=== PATIENT | female | born 1945 | race Caucasian/White ===

== ENCOUNTER 2017-07-24 14:09 | Inpatient (IN) | payer BC ==
[2017-07-24] MEDS: CEFEPIME 2GM/50 ML (PMX) 50 ML IVPB (17:13)
[2017-07-24] MEDS: ACETAMINOPHEN 325 MG TAB PO (17:13)
[2017-07-24] MEDS: SODIUM CHLORIDE 0.9% 1L BAG IV* (17:13)
[2017-07-24 17:55] LABS: INR 1.08; PROTIME 14.1 Sec (11.9-14.9); PT RATIO 1.1
[2017-07-24 18:02] LABS: ALANINE AMINOTRANSFERASE 29 IU/L (13-69); ALBUMIN 4.3 g/dl (3.3-4.9); ALBUMIN/GLOBULIN RATIO 1.13; ALKALINE PHOSPHATASE 90 IU/L (42-121); ANION GAP 15 (8-16); ASPARTATE AMINO TRANSFERASE 35 IU/L (15-46); BILIRUBIN,INDIRECT 0.2 mg/dl (0-1.1); BILIRUBIN,TOTAL 0.2 mg/dl (0.2-1.3); BLOOD UREA NITROGEN 10 mg/dl (7-20); CALCIUM 8.8 mg/dl (8.4-10.2); CARBON DIOXIDE 32 mmol/L (21-31); CHLORIDE 81 mmol/L (97-110); CREATININE 0.74 mg/dl (0.44-1.00); GLUCOSE 110 mg/dl (70-220); POTASSIUM 3.1 mmol/L (3.5-5.1); SODIUM 125 mmol/L (135-144); TOTAL PROTEIN 8.1 g/dl (6.1-8.1)
[2017-07-24 18:13] LABS: TROPONIN-I 0.027 ng/ml (0.00-0.12)
[2017-07-24] MEDS: VANCOMYCIN 1 GM (PMX) 250 ML IVPB (18:17)
[2017-07-24] MEDS: OSELTAMIVIR 75 MG CAP PO (18:17)
[2017-07-24 18:19] LABS: ADD MAN DIFF? NO
[2017-07-24 18:25] LABS: WHITE BLOOD COUNT 7.5 10^3/ul (4.8-10.8)
[2017-07-24 18:25] LABS: BASOPHILS % 0.4 % (0.0-2.0); EOSINOPHILS % 0.1 % (0.0-7.0); HEMATOCRIT 33.6 % (37.0-47.0); HEMOGLOBIN 12.2 g/dl (12.0-16.0); LYMPHOCYTES % 13.3 % (15.0-51.0); MEAN CORPUSCULAR HEMOGLOBIN 33.6 pg (29.0-33.0); MEAN CORPUSCULAR HGB CONC 36.3 g/dl (32.0-37.0); MEAN CORPUSCULAR VOLUME 92.6 fl (82.0-101.0); MEAN PLATELET VOLUME 10.3 fl (7.4-10.4); MONOCYTE # 1.1 10^3/ul (0.3-0.9); NEUTROPHIL # 5.3 10^3/ul (1.6-7.5); NEUTROPHILS % 70.9 % (39.0-77.0); PLATELET COUNT 227 10^3/UL (140-415); RED BLOOD COUNT 3.63 10^6/ul (4.20-5.40); RED CELL DISTRIBUTION WIDTH 12.7 % (11.5-14.5)
[2017-07-24] MEDS: POTASSIUM CHLORIDE (SR) 20 MEQ TAB PO (18:56)
[2017-07-24] MEDS ORDERED: ONDANSETRON 4 MG INJ IV (19:00)
[2017-07-24] MEDS ORDERED: ACETAMINOPHEN 325 MG TAB PO (19:00)
[2017-07-24 19:24] LABS: ADD UMIC NO; UR ASCORBIC ACID NEGATIVE (NEGATIVE); UR BILIRUBIN (Dip) NEGATIVE (NEGATIVE); UR BLOOD (Dip) NEGATIVE (NEGATIVE); UR CLARITY CLEAR (CLEAR); UR COLOR STRAW (YELLOW); UR GLUCOSE (Dip) NEGATIVE (NEGATIVE); UR KETONES (Dip) NEGATIVE (NEGATIVE); UR LEUKOCYTE ESTERASE (Dip) NEGATIVE Leu/ul (NEGATIVE); UR NITRITE (Dip) NEGATIVE (NEGATIVE); UR SPECIFIC GRAVITY (Dip) 1.005 (1.003-1.030); UR TOTAL PROTEIN (Dip) NEGATIVE (NEGATIVE); UR UROBILINOGEN (Dip) NEGATIVE (NEGATIVE)
[2017-07-24 19:26] LABS: LACTIC ACID 0.7 mmol/L (0.5-2.0)
[2017-07-24] MEDS ORDERED: DOCUSATE SODIUM 100 MG CAP PO (20:30)
[2017-07-24] MEDS ORDERED: BISACODYL (EC) 5 MG TAB PO (20:30)
[2017-07-24] MEDS ORDERED: GUAIFENESIN/CODEINE 5ML CUP PO (20:30)
[2017-07-24] MEDS: NIFEdipine (XL) 30 MG TAB PO (20:30)
[2017-07-24] MEDS ORDERED: ONDANSETRON 4 MG TAB PO (20:30)
[2017-07-24] MEDS ORDERED: NACL 0.9% 3 ML SYG IV (20:30)
[2017-07-25] MEDS ORDERED: GUAIFENESIN/DM 5ML CUP PO (02:00)
[2017-07-25] MEDS ORDERED: PHENOL 1.4% SOLN 180 ML BTL MT (03:35)
[2017-07-25] MEDS: OSELTAMIVIR 75 MG CAP PO ×3 (05:23→20:30)
[2017-07-25] MEDS: FAMOTIDINE 20 MG TAB PO (05:23)
[2017-07-25] MEDS: AL HYDROX/MG HYDROX/SIMETH 30 ML CUP PO (05:23)
[2017-07-25 06:21] LABS: ADD MAN DIFF? NO
[2017-07-25 06:33] LABS: BASOPHILS % 0.6 % (0.0-2.0); EOSINOPHILS % 0.2 % (0.0-7.0); HEMATOCRIT 33.2 % (37.0-47.0); HEMOGLOBIN 11.8 g/dl (12.0-16.0); LYMPHOCYTES % 19.4 % (15.0-51.0); MEAN CORPUSCULAR HEMOGLOBIN 33.5 pg (29.0-33.0); MEAN CORPUSCULAR HGB CONC 35.5 g/dl (32.0-37.0); MEAN CORPUSCULAR VOLUME 94.3 fl (82.0-101.0); MEAN PLATELET VOLUME 10.1 fl (7.4-10.4); MONOCYTE # 1.1 10^3/ul (0.3-0.9); MONOCYTES % 19.7 % (0.0-11.0); NEUTROPHIL # 3.2 10^3/ul (1.6-7.5); NEUTROPHILS % 59.7 % (39.0-77.0); PLATELET COUNT 207 10^3/UL (140-415); RED BLOOD COUNT 3.52 10^6/ul (4.20-5.40); RED CELL DISTRIBUTION WIDTH 12.8 % (11.5-14.5)
[2017-07-25 06:33] LABS: WHITE BLOOD COUNT 5.4 10^3/ul (4.8-10.8)
[2017-07-25 07:05] LABS: ALANINE AMINOTRANSFERASE 24 IU/L (13-69); ALBUMIN 3.6 g/dl (3.3-4.9); ALBUMIN/GLOBULIN RATIO 1.09; ALKALINE PHOSPHATASE 72 IU/L (42-121); ANION GAP 13 (8-16); ASPARTATE AMINO TRANSFERASE 33 IU/L (15-46); BILIRUBIN,INDIRECT 0.2 mg/dl (0-1.1); BILIRUBIN,TOTAL 0.2 mg/dl (0.2-1.3); BLOOD UREA NITROGEN 9 mg/dl (7-20); CALCIUM 8.6 mg/dl (8.4-10.2); CARBON DIOXIDE 33 mmol/L (21-31); CHLORIDE 92 mmol/L (97-110); CREATININE 0.67 mg/dl (0.44-1.00); GLUCOSE 103 mg/dl (70-220); MAGNESIUM 1.7 mg/dl (1.7-2.5); POTASSIUM 3.1 mmol/L (3.5-5.1); SODIUM 135 mmol/L (135-144); TOTAL PROTEIN 6.9 g/dl (6.1-8.1)
[2017-07-25 07:40] LABS: ADD UMIC NO; UR ASCORBIC ACID NEGATIVE (NEGATIVE); UR BILIRUBIN (Dip) NEGATIVE (NEGATIVE); UR BLOOD (Dip) NEGATIVE (NEGATIVE); UR CLARITY CLEAR (CLEAR); UR COLOR STRAW (YELLOW); UR GLUCOSE (Dip) NEGATIVE (NEGATIVE); UR KETONES (Dip) NEGATIVE (NEGATIVE); UR LEUKOCYTE ESTERASE (Dip) NEGATIVE Leu/ul (NEGATIVE); UR NITRITE (Dip) NEGATIVE (NEGATIVE); UR SPECIFIC GRAVITY (Dip) 1.008 (1.003-1.030); UR TOTAL PROTEIN (Dip) NEGATIVE (NEGATIVE); UR UROBILINOGEN (Dip) NEGATIVE (NEGATIVE)
[2017-07-25 07:50] LABS: SODIUM,URINE RANDOM 99 mmol/L (30-90)
[2017-07-25 08:00] LABS: HEMOGLOBIN A1C 5.6 % (0-5.9)
[2017-07-25 08:20] LABS: OSMOLALITY,URINE 321 mOsm/kg (250-1200)
[2017-07-25 08:20] LABS: OSMOLALITY 271 mOsm/kg (280-295)
[2017-07-25] MEDS: ACETAMINOPHEN 325 MG TAB PO (08:56)
[2017-07-25] MEDS: NIFEdipine (XL) 30 MG TAB PO (08:57)
[2017-07-26 05:21] LABS: ADD MAN DIFF? NO
[2017-07-26 05:23] LABS: LYMPHOCYTES # 1.4 10^3/ul (0.8-2.9); LYMPHOCYTES % 34.8 % (15.0-51.0); MEAN CORPUSCULAR HEMOGLOBIN 33.3 pg (29.0-33.0); MEAN CORPUSCULAR HGB CONC 35.3 g/dl (32.0-37.0); MEAN CORPUSCULAR VOLUME 94.4 fl (82.0-101.0); MEAN PLATELET VOLUME 9.7 fl (7.4-10.4); MONOCYTE # 0.8 10^3/ul (0.3-0.9); MONOCYTES % 20.9 % (0.0-11.0); NEUTROPHIL # 1.7 10^3/ul (1.6-7.5); PLATELET COUNT 225 10^3/UL (140-415)
[2017-07-26 05:44] LABS: ALANINE AMINOTRANSFERASE 29 IU/L (13-69); ALBUMIN 3.4 g/dl (3.3-4.9); ALBUMIN/GLOBULIN RATIO 0.89; ALKALINE PHOSPHATASE 67 IU/L (42-121); ANION GAP 14 (8-16); ASPARTATE AMINO TRANSFERASE 39 IU/L (15-46); BILIRUBIN,INDIRECT 0.3 mg/dl (0-1.1); BILIRUBIN,TOTAL 0.3 mg/dl (0.2-1.3); BLOOD UREA NITROGEN 10 mg/dl (7-20); CARBON DIOXIDE 33 mmol/L (21-31); CHLORIDE 96 mmol/L (97-110); CREATININE 0.65 mg/dl (0.44-1.00); GLUCOSE 98 mg/dl (70-220); MAGNESIUM 1.8 mg/dl (1.7-2.5); POTASSIUM 3.2 mmol/L (3.5-5.1); SODIUM 140 mmol/L (135-144); TOTAL PROTEIN 7.2 g/dl (6.1-8.1)
[2017-07-26 05:46] LABS: CHOLESTEROL 125 mg/dl (100-200)
[2017-07-26 05:46] LABS: CHOL/HDL RATIO 3.4 RATIO; HDL CHOLESTEROL 36 mg/dl (33-92); LDL CHOLESTEROL,CALCULATED 78 mg/dl; TRIGLYCERIDES 54 mg/dl (0-149)
[2017-07-26] MEDS: OSELTAMIVIR 75 MG CAP PO ×2 (08:46→20:35)
[2017-07-26] MEDS: FAMOTIDINE 20 MG TAB PO (08:48)
[2017-07-26] MEDS: NIFEdipine (XL) 30 MG TAB PO (08:48)
[2017-07-26] MEDS ORDERED: POTASSIUM CHLORIDE (SR) 20 MEQ TAB PO (09:29)
[2017-07-26] MEDS: POTASSIUM CHLORIDE (SR) 20 MEQ TAB PO (09:34)
[2017-07-27 05:34] LABS: ADD MAN DIFF? NO
[2017-07-27 05:41] LABS: BASOPHILS % 0.9 % (0.0-2.0); EOSINOPHILS # 0.1 10^3/ul (0.0-0.5); EOSINOPHILS % 1.4 % (0.0-7.0); HEMATOCRIT 35.9 % (37.0-47.0); HEMOGLOBIN 12.5 g/dl (12.0-16.0); MEAN CORPUSCULAR HEMOGLOBIN 33.1 pg (29.0-33.0); MEAN CORPUSCULAR HGB CONC 34.8 g/dl (32.0-37.0); MEAN PLATELET VOLUME 9.8 fl (7.4-10.4); MONOCYTE # 0.7 10^3/ul (0.3-0.9); NEUTROPHIL # 1.5 10^3/ul (1.6-7.5); NEUTROPHILS % 36.2 % (39.0-77.0); PLATELET COUNT 249 10^3/UL (140-415); RED BLOOD COUNT 3.78 10^6/ul (4.20-5.40)
[2017-07-27 05:41] LABS: WHITE BLOOD COUNT 4.3 10^3/ul (4.8-10.8)
[2017-07-27 05:59] LABS: MONOCYTES % 15.3 % (0.0-11.0); POSITIVE DIFF @See below
[2017-07-27 06:09] LABS: ALANINE AMINOTRANSFERASE 31 IU/L (13-69); ALBUMIN 3.7 g/dl (3.3-4.9); ALBUMIN/GLOBULIN RATIO 1.02; ALKALINE PHOSPHATASE 68 IU/L (42-121); ANION GAP 14 (8-16); ASPARTATE AMINO TRANSFERASE 44 IU/L (15-46); BILIRUBIN,INDIRECT 0.2 mg/dl (0-1.1); BILIRUBIN,TOTAL 0.2 mg/dl (0.2-1.3); BLOOD UREA NITROGEN 13 mg/dl (7-20); CALCIUM 9.1 mg/dl (8.4-10.2); CARBON DIOXIDE 32 mmol/L (21-31); CHLORIDE 96 mmol/L (97-110); CREATININE 0.67 mg/dl (0.44-1.00); GLUCOSE 92 mg/dl (70-220); MAGNESIUM 1.8 mg/dl (1.7-2.5); POTASSIUM 3.7 mmol/L (3.5-5.1); SODIUM 138 mmol/L (135-144); TOTAL PROTEIN 7.3 g/dl (6.1-8.1)
[2017-07-27] MEDS: FAMOTIDINE 20 MG TAB PO (08:32)
[2017-07-27] MEDS: NIFEdipine (XL) 30 MG TAB PO (08:32)
[2017-07-27] MEDS: OSELTAMIVIR 75 MG CAP PO (08:32)
== END 2017-07-27 14:41 | disposition home or self-care (01) | DRG 871 ==
LOC: E/R 14:09 → PP2 18:45
DX: A41.89 Other specified sepsis (principal); J09.X1 Influenza due to identified novel influenza A virus with pneumonia; E87.1 Hypo-osmolality and hyponatremia; E86.0 Dehydration; E66.9 Obesity, unspecified; Z68.33 Body mass index [BMI] 33.0-33.9, adult; K29.70 Gastritis, unspecified, without bleeding; E87.6 Hypokalemia; J20.9 Acute bronchitis, unspecified
CPT/HCPCS: 36415; 71010; 80053; 80061; 81003; 83036; 83605; 83735; 83930; 83935; 84300; 84443; 84484; 85025; 85610; 85730; 87040; 87086; 87400; 93005; 96365; 96366; 96368; 99285-25